=== PATIENT | female | born 1970 | race Caucasian/White ===

== ENCOUNTER → 2018-08-15 | Outpatient (CLI) | payer OTHER ==
--- NOTE | 2018-08-15 13:55 | RAD ---
08/15/2018 Ankle-brachial index Bilateral lower extremity arterial duplex ultrasound INDICATION: Peripheral vascular disease, bilateral lower extremity pain Discussion: Blood pressure measurements were obtained of the arms and ankles bilaterally. Right brachial pressure: 122 mmHg Left brachial pressure: 110 mmHg Right ankle pressure: 121 mmHg Right GIOVANNI 0.99 Left ankle pressure: 134 mmHg Left GIOVANNI 1.09 Ultrasound evaluation of the bilateral lower extremity arteries was performed including color Doppler imaging spectral analysis. Elevated velocities are seen within the bilateral common femoral arteries. Appear to be biphasic waveforms are seen in the right common femoral artery. This is likely artifactual given other findings. Normal waveforms and velocities are otherwise throughout the major arteries of the bilateral lower extremities. IMPRESSION: 1. Normal ankle-brachial indices. 2. Elevated velocities within the common femoral arteries and mild blunting of the left common femoral artery waveforms. Normal waveforms and velocities are noted distal to this throughout the lower extremities. Findings are nonspecific and no definitive evidence of significant stenosis is identified. If there is high clinical suspicion for significant arterial disease CT angiography could be performed for further evaluation. Electronically signed by: Noe Jaffe MD (08/15/2018 1:52 PM) [id number]
== END | disposition home or self-care (01) ==
LOC: US 09:21
PROVIDERS: ATTEND Surgery
DX: I73.9 Peripheral vascular disease, unspecified (principal)
CPT/HCPCS: 93922; 93925